=== PATIENT | male | born 1955 | race Caucasian/White ===

== ENCOUNTER 2021-02-03 11:59 | Observation (INO) ==
[2021-02-03 14:25] LABS: Bilirubin,Urine Negative (Negative); Blood,Urine Negative (Negative); Clarity,Urine Clear (Clear); Color,Urine Light-Yellow (Yellow); Glucose,Urine (UA) Normal (Normal); Ketones,Urine Negative (Negative); Leukocyte Esterase,Urine Negative (Negative); Nitrite,Urine Negative (Negative); Protein,Urine Negative (Neg-Trace); Urobilinogen,Urine Normal (Normal)
[2021-02-03 14:26] LABS: Basophils # 0.1 K/mcL (0.0-0.2); Basophils % 0.3 %; Hematocrit 45.1 % (37.5-50.1); Immature Granulocytes % 1.4 % (0-4); Lymphocytes # 1.4 K/mcL (0.6-4.6); Lymphocytes % 4.2 %; Mean Corpuscular HGB Conc 33.3 g/dL (31.6-35.5); Mean Corpuscular Hemoglobin 31.1 pg (28.0-33.3); Mean Corpuscular Volume 93.6 fL (83.0-100.0); Mean Platelet Volume 9.8 fL (9.4-12.4); Monocytes # 1.8 K/mcL (0.0-1.3); Monocytes % 5.3 %; Platelet Count 296 K/mcL (140-400); Red Blood Count 4.82 M/mcL (4.19-5.50); Red Cell Distribution Width 13.4 % (11.5-14.5); Segmented Neutrophils % 88.8 %
[2021-02-03 14:29] LABS: Neutrophils # 29.6 K/mcL (1.6-8.9)
[2021-02-03 14:32] LABS: White Blood Count 33.3 K/mcL (4.3-11.1)
[2021-02-03 14:37] LABS: BUN/Creatinine Ratio 21 (6-26); Blood Urea Nitrogen 26 mg/dL (8-23); Calcium 9.6 mg/dL (8.6-10.3); Carbon Dioxide 24 mEq/L (23-29); Chloride 108 mEq/L (98-107); Glucose 99 mg/dL (70-105); Osmolality,Calculated 293 (280-300); Potassium 4.1 mEq/L (3.5-5.1); Sodium 139 mEq/L (136-145); eGFR For African Americans > 60 (> 60); eGFR For Non-African Americans 60 (> 60)
[2021-02-03 14:38] LABS: Albumin/Globulin Ratio 1.3 (1.1-2.2); Bilirubin,Direct 0.2 mg/dL (0.0-0.2); Bilirubin,Indirect 0.5 mg/dL (0.0-1.0); Bilirubin,Total 0.7 mg/dL (0.3-1.0); Globulin 3.1 g/dL (2.4-3.5); Total Protein 7.1 g/dL (6.4-8.9)
[2021-02-03 15:13] LABS: Platelet Estimate Normal (Normal)
[2021-02-03] MEDS ORDERED: Piperacillin/Tazobactam 3.375 GM in 0.9 % Sodium Chloride Mini Bag 100 ML IVPB ONE (16:19)
[2021-02-03] MEDS ORDERED: Naloxone 0.4 MG/ML INJ IVP PRN (16:38)
[2021-02-03] MEDS ORDERED: Ondansetron 4 MG/2 ML VIAL IVP PRN (16:38)
[2021-02-03] MEDS ORDERED: 0.9 % Sodium Chloride 1,000 ML IVC SCH (16:45)
[2021-02-03] MEDS ORDERED: Cholestyramine 4 GM POWD.PACK PO SCH (17:45)
[2021-02-03] MEDS ORDERED: (Cranberry 500 MG Capsule) PO SCH (21:00)
[2021-02-03] MEDS ORDERED: *HR* OxyCODONE Immed Rel 5 MG TABLET PO PRN (21:38)
[2021-02-04 05:33] LABS: Eosinophils % 0.9 %; Lymphocytes % 7.1 %
[2021-02-04 05:35] LABS: Basophils # 0.1 K/mcL (0.0-0.2); Basophils % 0.4 %; Eosinophils # 0.2 K/mcL (0.0-0.6); Hematocrit 40.7 % (37.5-50.1); Hemoglobin 13.2 g/dL (12.9-16.9); Immature Granulocytes % 1.1 % (0-4); Lymphocytes # 1.9 K/mcL (0.6-4.6); Mean Corpuscular HGB Conc 32.4 g/dL (31.6-35.5); Mean Corpuscular Hemoglobin 30.8 pg (28.0-33.3); Mean Corpuscular Volume 95.1 fL (83.0-100.0); Mean Platelet Volume 9.9 fL (9.4-12.4); Monocytes % 7.6 %; Neutrophils # 21.9 K/mcL (1.6-8.9); Platelet Count 272 K/mcL (140-400); Red Blood Count 4.28 M/mcL (4.19-5.50); Red Cell Distribution Width 13.5 % (11.5-14.5); Segmented Neutrophils % 82.9 %; White Blood Count 26.4 K/mcL (4.3-11.1)
[2021-02-04 05:45] LABS: BUN/Creatinine Ratio 23 (6-26); Blood Urea Nitrogen 27 mg/dL (8-23); Calcium 8.4 mg/dL (8.6-10.3); Carbon Dioxide 25 mEq/L (23-29); Chloride 110 mEq/L (98-107); Glucose 99 mg/dL (70-105); Osmolality,Calculated 297 (280-300); Phosphorous 3.1 mg/dL (2.7-4.5); Potassium 4.2 mEq/L (3.5-5.1); Sodium 141 mEq/L (136-145); eGFR For African Americans > 60 (> 60); eGFR For Non-African Americans > 60 (> 60)
[2021-02-04 07:26] VITALS: BP 130/39; PULSE 77; TEMP 98.7; O2SAT 95
[2021-02-04] MEDS ORDERED: 0.9 % Sodium Chloride 1,000 ML IVC SCH (07:30)
[2021-02-04] MEDS ORDERED: amLODIPine 5 MG TABLET PO SCH (09:00)
[2021-02-04] MEDS ORDERED: Cholecalciferol (D-3) 1,000 UNIT (25MCG) TABLET PO SCH (09:00)
[2021-02-04] MEDS ORDERED: Finasteride 5 MG TABLET PO SCH (09:00)
[2021-02-04] MEDS ORDERED: Gabapentin 300 MG CAPSULE PO SCH (09:00)
[2021-02-04] MEDS ORDERED: Ascorbic Acid 500 MG TABLET PO SCH (09:00)
[2021-02-04] MEDS ORDERED: Cholestyramine 4 GM POWD.PACK PO SCH (09:00)
[2021-02-04] MEDS ORDERED: Piperacillin/Tazobactam 3.375 GM in 0.9 % Sodium Chloride Mini Bag 100 ML IVPB SCH ×2 (13:00)
== END 2021-02-04 11:15 | disposition home or self-care (01) ==
LOC: EMEROOARM 11:59 → 2ANU 11:59
PROVIDERS: ADMIT Student in an Organized Health Care Education/Training Program; ATTEND Student in an Organized Health Care Education/Training Program

== ENCOUNTER 2021-07-12 14:58 | Observation (INO) ==
[2021-07-12 17:01] LABS: Basophils # 0.1 K/mcL (0.0-0.2); Basophils % 1.1 %; Eosinophils # 0.3 K/mcL (0.0-0.6); Eosinophils % 2.7 %; Hematocrit 40.6 % (37.5-50.1); Hemoglobin 13.4 g/dL (12.9-16.9); Immature Granulocytes % 0.4 % (0-4); Lymphocytes # 1.3 K/mcL (0.6-4.6); Lymphocytes % 14.1 %; Mean Corpuscular Hemoglobin 31.1 pg (28.0-33.3); Mean Corpuscular Volume 94.2 fL (83.0-100.0); Mean Platelet Volume 9.4 fL (9.4-12.4); Monocytes # 0.7 K/mcL (0.0-1.3); Monocytes % 7.2 %; Neutrophils # 7.1 K/mcL (1.6-8.9); Platelet Count 279 K/mcL (140-400); Red Blood Count 4.31 M/mcL (4.19-5.50); Red Cell Distribution Width 13.2 % (11.5-14.5); Segmented Neutrophils % 74.5 %; White Blood Count 9.5 K/mcL (4.3-11.1)
[2021-07-12 17:38] LABS: BUN/Creatinine Ratio 12 (6-26); Blood Urea Nitrogen 15 mg/dL (8-23); Calcium 9.1 mg/dL (8.6-10.3); Carbon Dioxide 23 mEq/L (23-29); Chloride 108 mEq/L (98-107); Glucose 98 mg/dL (70-105); Osmolality,Calculated 291 (280-300); Potassium 3.8 mEq/L (3.5-5.1); Sodium 140 mEq/L (136-145); Troponin I < 0.03 ng/mL (< 0.04); eGFR For African Americans > 60 (> 60); eGFR For Non-African Americans 60 (> 60)
[2021-07-12] MEDS ORDERED: Ipratropium/Albuterol Neb 3 ML IH ONE (18:18)
[2021-07-12 20:20] LABS: Influenza A PCR Negative (Negative); Influenza B PCR Negative (Negative); Resp. Syncytial Virus PCR Negative (Negative)
[2021-07-12 20:21] LABS: SARS-CoV-2 by PCR (In House) Negative (Negative)
[2021-07-12] MEDS ORDERED: predniSONE 20 MG TABLET PO ONE (20:24)
[2021-07-12] MEDS ORDERED: Ondansetron 4 MG/2 ML VIAL IVP PRN (23:18)
[2021-07-12] MEDS ORDERED: Melatonin 3 MG TABLET PO PRN (23:18)
[2021-07-12] MEDS ORDERED: Naloxone 0.4 MG/ML INJ IVP PRN (23:18)
[2021-07-12] MEDS ORDERED: Acetaminophen 325 MG TABLET PO PRN (23:18)
[2021-07-13 01:19] LABS: Basophils # 0.1 K/mcL (0.0-0.2); Basophils % 0.7 %; Eosinophils # 0.1 K/mcL (0.0-0.6); Eosinophils % 1.3 %; Hematocrit 40.9 % (37.5-50.1); Hemoglobin 13.5 g/dL (12.9-16.9); Immature Granulocytes % 0.5 % (0-4); Lymphocytes # 0.8 K/mcL (0.6-4.6); Lymphocytes % 6.8 %; Mean Corpuscular Hemoglobin 30.8 pg (28.0-33.3); Mean Corpuscular Volume 93.4 fL (83.0-100.0); Mean Platelet Volume 9.3 fL (9.4-12.4); Monocytes # 0.4 K/mcL (0.0-1.3); Monocytes % 3.2 %; Neutrophils # 9.7 K/mcL (1.6-8.9); Platelet Count 285 K/mcL (140-400); Red Blood Count 4.38 M/mcL (4.19-5.50); Red Cell Distribution Width 13.2 % (11.5-14.5); Segmented Neutrophils % 87.5 %; White Blood Count 11.1 K/mcL (4.3-11.1)
[2021-07-13] MEDS ORDERED: methylPREDNISolone 125 MG/2 ML VIAL IVP ONE (01:27)
[2021-07-13 01:34] LABS: Prothrombin Time 11.2 Seconds (9.4-12.1)
[2021-07-13 01:39] LABS: Alanine Aminotransferase 11 Units/L (7-52); Albumin/Globulin Ratio 1.4 (1.1-2.2); Alkaline Phosphatase 108 Units/L (34-104); Aspartate Amino Transferase 12 Units/L (13-39); BUN/Creatinine Ratio 13 (6-26); Bilirubin,Total 0.4 mg/dL (0.3-1.0); Blood Urea Nitrogen 13 mg/dL (8-23); Carbon Dioxide 24 mEq/L (23-29); Chloride 109 mEq/L (98-107); Chol/HDL Ratio 4.8 (0-4.9); Cholesterol 173 mg/dL (< 200); Globulin 2.9 g/dL (2.4-3.5); Glucose 98 mg/dL (70-105); HDL Cholesterol 36 mg/dL (40-59); LDL Cholesterol,Calculated 119 mg/dL (< 100); Magnesium 1.9 mg/dL (1.6-2.6); Osmolality,Calculated 292 (280-300); Phosphorous 3.1 mg/dL (2.7-4.5); Potassium 3.9 mEq/L (3.5-5.1); Sodium 141 mEq/L (136-145); Total Protein 6.9 g/dL (6.4-8.9); Triglycerides 92 mg/dL (< 150); eGFR For African Americans > 60 (> 60); eGFR For Non-African Americans > 60 (> 60)
[2021-07-13] MEDS ORDERED: Nicotine 21 MG PATCH.TD24 TD SCH (03:30)
[2021-07-13] MEDS: Ipratropium/Albuterol Neb 3 ML IH SCH ×3 (03:56→11:31)
[2021-07-13] MEDS ORDERED: *HR* Enoxaparin 40 MG/0.4 ML SYRINGE SQ SCH (06:00)
[2021-07-13 07:09] VITALS: TEMP 97.7
[2021-07-13] MEDS ORDERED: Gabapentin 300 MG CAPSULE PO SCH ×2 (09:00→21:00)
[2021-07-13] MEDS ORDERED: Azithromycin 250 MG TABLET PO SCH (09:00)
[2021-07-13] MEDS ORDERED: Chlorhexidine Rinse 15 ML MOUTHWASH MM SCH (09:00)
[2021-07-13] MEDS ORDERED: predniSONE 20 MG TABLET PO SCH (09:00)
[2021-07-13] MEDS ORDERED: Finasteride 5 MG TABLET PO SCH (09:00)
[2021-07-13] MEDS ORDERED: Isovue-370 500 ML BOTTLE IVP ONE (09:37)
[2021-07-13] MEDS ORDERED: Budesonide/Formoterol 160/4.5 1 PUFF INH IH SCH (10:00)
[2021-07-13 11:33] VITALS: BP 125/67; PULSE 74; O2SAT 96
== END 2021-07-13 14:47 | disposition home or self-care (01) ==
LOC: EMEROOARM 14:58 → 3BNU 14:58 → SUATTDRO 23:15 → 3BNU 07-13 00:21
PROVIDERS: ADMIT Internal Medicine; ATTEND Internal Medicine